=== PATIENT | female | born 1955 | race Caucasian/White ===

== ENCOUNTER 2018-07-31 08:47 | Outpatient (CLI) | payer BC ==
--- NOTE | 2018-07-31 11:25 | BD ---
BONE DENSITOMETRY USING DEXA: Date: 07/31/18 HISTORY: Postmenopausal screening for osteoporosis. FINDINGS: Lumbar Spine: BMD (g/cm2) L1 0.863 T-Score: -1.2 Z-Score: 0.2 L2 0.772 T-Score: -2.3 Z-Score: -0.9 L3 0.849 T-Score: -2.1 Z-Score: -0.6 L4 0.848 T-Score: -1.9 Z-Score: -0.4 L1-L4 0.834 T-Score: -1.9 Z-Score: -0.5 Femoral Neck: 0.640 T-Score: -1.9 Z-Score: -0.6 Total Femur: 0.856 T-Score: -0.7 Z-Score: 0.3 The 10 year fracture risk for a major osteoporotic fracture is 9.1% and for a hip fracture is 1.0%. IMPRESSION: Osteopenia. POS: MAKEDA
== END 2018-07-31 08:48 | disposition home or self-care (01) ==
LOC: BICMAMMO 08:47
PROVIDERS: ATTEND Family Medicine
DX: Z08 Encounter for follow-up examination after completed treatment for malignant neoplasm (principal); M81.0 Age-related osteoporosis without current pathological fracture; M85.89 Other specified disorders of bone density and structure, multiple sites; Z85.3 Personal history of malignant neoplasm of breast
CPT/HCPCS: 77066; 77080; G0279

== ENCOUNTER 2019-08-17 10:01 | Outpatient (CLI) | payer BC ==
--- NOTE | 2019-08-17 11:01 | BD ---
BONE DENSITOMETRY USING DEXA: HISTORY: Postmenopausal screening for osteoporosis. FINDINGS: Lumbar Spine: BMD (g/cm2) L1 0.812 T-Score: -1.6 Z-Score: -0.2 L2 0.907 T-Score: -1.1 Z-Score: 0.4 L3 0.820 T-Score: -2.4 Z-Score: 0.8 L4 0.895 T-Score: -1.5 Z-Score: 0.1 L1-L4 0.859 T-Score: -1.7 Z-Score: -0.2 Femoral Neck: 0.661 T-Score: -1.7 Z-Score: -0.3 Total Femur: 0.888 T-Score: -0.4 Z-Score: 0.6 There has been interval improvement of 3.1% in the BMD of the lumbar spine and an improvement of 3.8% in the BMD of the proximal femur since 07/31/2018. Impression: Osteopenia. POS: MAKEDA
--- NOTE | 2019-08-17 11:06 | MMO ---
Bilateral MAMMO Bilat Diag [facility]. CLINICAL HISTORY: Patient is 64 years old and is seen for diagnostic exam. The patient has no family history of breast cancer. 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 The patient has a history of right Stereotatic Biopsy at age 60 - dcis. VIEWS: The views performed were: bilateral craniocaudal with tomosynthesis; bilateral mediolateral oblique with tomosynthesis; and bilateral mediolateral with tomosynthesis. FILMS COMPARED: The present examination has been compared to prior imaging studies performed at [facility] on 05/28/2016, 06/08/2016, 07/04/2017 and 07/31/2018. This study has been interpreted with the assistance of computer-aided detection. MAMMOGRAM FINDINGS: There are scattered fibroglandular densities. There are stable post operative changes seen in the right breast. There are no suspicious masses, suspicious calcifications, or new areas of architectural distortion. IMPRESSION: THERE IS NO MAMMOGRAPHIC EVIDENCE OF MALIGNANCY. A ROUTINE FOLLOW-UP MAMMOGRAM IN 1 YEAR IS RECOMMENDED. THE RESULTS OF THIS EXAM WERE SENT TO THE PATIENT. ACR BI-RADS Category 2 - Benign finding MAMMOGRAPHY NOTE: 1. A negative mammogram report should not delay a biopsy if a dominant of clinically suspicious mass is present. 2. Approximately 10% to 15% of breast cancers are not detected by mammography. 3. Adenosis and dense breasts may obscure an underlying neoplasm. Reported by: LINDA JENKINS MD Electonically Signed: [id number]
== END 2019-08-17 10:02 | disposition home or self-care (01) ==
LOC: BICMAMMO 10:01
PROVIDERS: ATTEND Internal Medicine Hematology & Oncology
DX: C50.411 Malignant neoplasm of upper-outer quadrant of right female breast (principal); M85.89 Other specified disorders of bone density and structure, multiple sites
CPT/HCPCS: 77066; 77080; G0279

== ENCOUNTER 2020-09-18 07:56 | Outpatient (CLI) | payer BC ==
--- NOTE | 2020-09-18 09:05 | BD ---
BONE DENSITOMETRY USING DEXA: Date: 09/18/2020 HISTORY: Postmenopausal screening for osteoporosis. FINDINGS: Lumbar Spine: BMD (g/cm2) L1 0.789 T-Score: -1.8 Z-Score: -0.4 L2 0.808 T-Score: -2.0 Z-Score: -0.4 L3 0.935 T-Score: -1.4 Z-Score: 0.3 L4 0.838 T-Score: -2.0 Z-Score: -0.3 L1-L4 0.845 T-Score: -1.8 Z-Score: -0.2 Femoral Neck: 0.649 T-Score: -1.8 Z-Score: -0.4 Total Femur: 0.869 T-Score: -0.6 Z-Score: 0.5 There has been interval reduction of 1.7% in the bone mineral density of the lumbar spine and a reduc tion of 2.1% in the bone mineral density of the proximal femur since 08/17/2019. IMPRESSION: Osteopenia. POS: BEL
== END 2020-09-18 07:57 | disposition home or self-care (01) ==
LOC: BICMAMMO 07:56
PROVIDERS: ATTEND Family Medicine
DX: M81.0 Age-related osteoporosis without current pathological fracture (principal); M85.89 Other specified disorders of bone density and structure, multiple sites
CPT/HCPCS: 77080

== ENCOUNTER 2020-11-21 08:21 | Outpatient (CLI) | payer BC | END 2020-11-21 08:22 | disposition home or self-care (01) | LOC: BICMAMMO 08:21 | PROVIDERS: ATTEND Internal Medicine Hematology & Oncology | DX: Z08 Encounter for follow-up examination after completed treatment for malignant neoplasm (principal); Z85.3 Personal history of malignant neoplasm of breast; N63.20 Unspecified lump in the left breast, unspecified quadrant; N64.89 Other specified disorders of breast; Z98.890 Other specified postprocedural states | CPT/HCPCS: 77066; G0279 ==

== ENCOUNTER 2021-06-15 09:03 | Outpatient (CLI) | payer BC | END 2021-06-15 09:04 | disposition home or self-care (01) | LOC: BICMAMMO 09:03 | PROVIDERS: ATTEND Specialist | DX: D05.11 Intraductal carcinoma in situ of right breast (principal); N64.89 Other specified disorders of breast; Z98.890 Other specified postprocedural states | CPT/HCPCS: G0279 ==

== ENCOUNTER 2021-11-27 10:32 | Outpatient (CLI) | payer BC | END 2021-11-27 10:33 | disposition home or self-care (01) | LOC: BICMAMMO 10:32 | PROVIDERS: ATTEND Specialist | DX: D05.11 Intraductal carcinoma in situ of right breast (principal) | CPT/HCPCS: 77066; G0279 ==

== ENCOUNTER 2023-01-18 13:33 | Outpatient (CLI) | payer MEDICARE, OTHER | END 2023-01-18 13:34 | disposition home or self-care (01) | LOC: BICMAMMO 13:33 | PROVIDERS: ATTEND Family Medicine | DX: Z12.31 Encounter for screening mammogram for malignant neoplasm of breast (principal); M81.0 Age-related osteoporosis without current pathological fracture; Z85.3 Personal history of malignant neoplasm of breast | CPT/HCPCS: 77063; 77067; 77080 ==

== ENCOUNTER 2024-06-18 11:24 | Outpatient (CLI) | payer MEDICARE, OTHER | END 2024-06-18 11:25 | disposition home or self-care (01) | LOC: SCSRAD 11:24 | PROVIDERS: ATTEND Internal Medicine Rheumatology | DX: L40.50 Arthropathic psoriasis, unspecified (principal); M25.551 Pain in right hip; M81.0 Age-related osteoporosis without current pathological fracture; M16.11 Unilateral primary osteoarthritis, right hip ==